=== PATIENT | male | born 1965 | race Hispanic/Latino ===

== ENCOUNTER 2024-01-05 08:30 | Day surgery (SDC) | payer BC, OTHER ==
[2023-12-27 14:21] VITALS: BP 111/73
[~2024-01-05] VITALS: Ht 167.6 cm; Wt 99.5 kg
[~2024-01-05 08:30] MED LIST: ACETAMINOPHEN500 MG PO; CEFAZOLIN SODIUM 2 GM/20 ML SYR IV SCH; CIPRO500 MG PO; HEParin SOD (PORCINE) 5,000 UNIT/0.5 ML SYR SUB-Q SCH; IBLOOD GLUCOSE TEST STRIP 1 EA TEST VI PRN; LACTATED RINGER'S 1,000 ML IV SCH; LIDOCAINE HCL 1% 5 ML SDV INJ ONE; METRONIDAZOLE250 MG PO; MOTRIN IB200 MG PO; OXYCODON-ACETA1 EAC2 PO
[2024-01-05] MEDS ORDERED: LIPITOR20 MG PO (08:50)
[2024-01-05] MEDS ORDERED: LEVOTHYROXINE88 MC1 PO (08:50)
[2024-01-05 08:52] VITALS: BP 132/72
[2024-01-05] MEDS ORDERED: MIDAZOLAM HCL 2 MG/2 ML VIAL ONE (11:26)
[2024-01-05] MEDS ORDERED: fentaNYL citrate 100 MCG/2 ML VIAL ONE (11:26)
[2024-01-05] MEDS ORDERED: BUPIVACAINE 0.75% IN DEXTROSE 2 ML AMP ONE (11:26)
[2024-01-05] MEDS ORDERED: LIDOCAINE HCL 2% 5 ML SDV ONE (11:26)
[2024-01-05] MEDS ORDERED: propofoL 200 MG/20 ML VIAL ONE (12:17)
[2024-01-05] MEDS ORDERED: DEXAMETHASONE SOD PHOS 4 MG/ML VIAL ONE (12:17)
[2024-01-05] MEDS ORDERED: IBUPROFEN600 MG PO (13:10)
[2024-01-05] MEDS ORDERED: OXYCODON-ACETA1 EAC2 PO (13:10)
[2024-01-05] MEDS ORDERED: ACETAMINOPHEN500 MG PO (13:10)
[2024-01-05] MEDS ORDERED: METAMUCIL FIBE3.4 GM PO (13:11)
[2024-01-05] MEDS ORDERED: OXYCODONE/APAP 7.5/325 TAB PO PRN (13:15)
[2024-01-05] MEDS ORDERED: IBUPROFEN 600 MG TAB PO PRN (13:15)
[2024-01-05] MEDS ORDERED: NALOXONE HCL 0.4 MG SYR IV PRN (13:15)
[2024-01-05] MEDS ORDERED: ACETAMINOPHEN 500 MG TAB PO PRN (13:15)
--- NOTE | 2024-01-05 13:16 | NUR ---
01/05/24 1316 Patrizia Rao 1255- PT PRESENTS TO PACU, SEMI BARR POSITION. LR INFUSING TO RH IV, O2 AT 6L PER MASK. BREATHING EVEN AND NON LABORED. ABD SOFT, NON DISTENDED. NON REACTIVE TO STIMULUS AT THIS TIME. ALL MONITORS IN PLACE. NO SIGNS OF DISTRESS. WILL CONTINUE TO MONITOR. 1302- PT REACTIVE TO VERBAL STIMULI, REORIENTED TO TIME AND PLACE. PT DENIES PAIN AND NAUSEA. FULL STRENGTH TO BLE, REPORTS NO NUMBNESS TO BILATERAL FEET. PT RESTING INTERMITTENTLY. 1310- PT MOVED TO ROOM AIR AT THIS TIME. 1315- DR SLOAN AT BEDSIDE TO REVIEW PROCEDURE FINDINGS WITH PT. PT WAKES EASILY TO VERBAL STIMULI.
[2024-01-05 13:46] VITALS: BP 108/68
--- NOTE | 2024-01-05 15:29 | OR ---
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 PROCEDURES: 1. Exam under anesthesia. 2. Anal dilatation (two finger diameter). 3. Left posterior submuscular anal fistulotomy. ANESTHESIA: Spinal with IV sedation, Lazaro Gloria, OVERNIGHT HOUSEPERSON. INDICATION: This 58-year-old man is a patient of Car Pearson MD and the patient lives in [place], [place]. He has had chronic recurrent drainage of abscess fluid in the left posterior anorectal area. He has had at least four episodes of drainage and clinical findings are suggestive of chronic fistula in ANO. He was evaluated and seen by me on November 01, 2023, with recurrent left posterior perirectal abscess no doubt related to this chronic fistula. He underwent drainage and placement of the yellow vessel loop seton as the opening of the abscess in the left posterior aspect was submuscular. The seton has been in place to allow for fibrosis of the sphincter muscle to allow for fistulotomy with decreased risk of anal dysfunction. The patient is currently doing well. The yellow vessel loop seton is well positioned and clinically he is ready to undergo exam under anesthesia and anal fistulotomy. The risk of bleeding, infection, variable degrees of incontinence and so forth were all reviewed with him. He understands and wished to proceed. FINDINGS: The yellow vessel loop was just to the left of the midline in the posterior aspect. A good fibrotic area of muscle was noted. Division of the fistula revealed underlying granulation tissue which was cauterized and curetted. There were some hemorrhoidal Electronically Signed By: VAISHALI SLOAN MD 01/05/24 1529 PATIENT NAME: BRIT TESFAYE OPERATIVE REPORT DATE OF : 65 REPORT #: [id number] PHYSICIAN: VAISHALI SLOAN MD PCP: CAR PEARSON MD REPORT IS CONFIDENTIAL AND NOT TO BE RELEASED WITHOUT AUTHORIZATION [facility] [address], [place] [address] Signed disease in the area though this was not addressed at this time. He tolerated the procedure well. DESCRIPTION OF PROCEDURE: The patient was given a spinal anesthetic and placed in the prone marielena-knife position. Preoperative antibiotics had been given. Sequential compression device stockings were used and heparin subcutaneously administered. The yellow vessel loop seton was well positioned in the left posterior aspect. The buttocks were taped apart and careful clipping and ultimately preparation of the perianal area undertaken. There appeared to be minimal amount of purulence along the fistulous tract. There was no sign of cellulitic change or other problems. He had some hemorrhoidal disease as well. The seton was elevated and palpation of the underlying muscle appeared to be fibrotic as had been hoped for and intended. With elevation of the seton and careful traction on the surrounding perianal tissue, the fistulous tract was divided with electrocautery through fibrotic muscle, thus freeing the seton completely. The base of the fistulous tract which extended only about 2-3 cm from the anal verge did emanate from the dentate line as would be expected. The base had chronic granulation tissue, which was cauterized and then curetted. After that, nearly 10 mL of 0.25% Marcaine with epinephrine was injected locally. A Gel-Foam was rolled and bacitracin applied and inserted into the anal canal for postoperative analgesic benefit. The patient tolerated the procedure well, was returned to the supine position and taken to recovery room in good condition. Blood loss was minimal. Complications none. MD ULICES [place]/MODL /[id number] cc: Car Pearson MD Copies: ~ Electronically Signed By: VAISHALI SLOAN MD 01/05/24 1529 PATIENT NAME: BRIT TESFAYE Nkechi OPERATIVE REPORT DATE OF : 65 REPORT #: [id number] PHYSICIAN: VAISHALI SLOAN MD PCP: CAR PEARSON MD REPORT IS CONFIDENTIAL AND NOT TO BE RELEASED WITHOUT AUTHORIZATION
== END 2024-01-05 14:10 | disposition home or self-care (01) ==
LOC: DS 08:30
PROVIDERS: ATTEND Surgery
PROC: 0DBQXZZ Excision of Anus, External Approach (ICD-10-PCS; principal; 2024-01-05 11:05)
DX: K60.3 Anal fistula (principal); K64.9 Unspecified hemorrhoids; Z79.899 Other long term (current) drug therapy
CPT/HCPCS: J0690; J1100; J1644; J2001; J2250; J2704; J3010; J7121